=== PATIENT | male | born 1995 | race Two or more races ===

== ENCOUNTER → 2024-07-28 | Outpatient (CLI) | payer OTHER | LOC: M ADAMS 11:14 | PROVIDERS: ATTEND Physician Assistant | DX: M79.644 Pain in right finger(s) (principal) ==

== ENCOUNTER → 2024-08-06 | Outpatient (CLI) | payer OTHER | LOC: M RAD 07:00 | PROVIDERS: ATTEND Physician Assistant | DX: S22.029D Unspecified fracture of second thoracic vertebra, subsequent encounter for fracture with routine healing (principal); S22.039D Unspecified fracture of third thoracic vertebra, subsequent encounter for fracture with routine healing ==

== ENCOUNTER → 2024-11-05 | Outpatient (CLI) | payer OTHER | LOC: M PLARAD 09:14 | PROVIDERS: ATTEND Orthopaedic Surgery Hand Surgery | DX: M79.644 Pain in right finger(s) (principal); M25.531 Pain in right wrist; M18.11 Unilateral primary osteoarthritis of first carpometacarpal joint, right hand ==